=== PATIENT | female | born 1940 | race Caucasian/White ===

== ENCOUNTER 2018-06-24 12:50 | Outpatient (CLI) | payer MEDICARE ==
--- NOTE | 2018-06-24 15:37 | ULT ---
DOPPLER ARTERIAL EVALUATION WITHIN THE RIGHT LOWER EXTREMITY: INDICATION: Decreased dorsalis pedis pulse. FINDINGS: There is triphasic waveform seen within the right common femoral artery and proximal to mid superfici al femoral artery with an antegrade monophasic waveform seen within the right profunda femoral artery proximally. More biphasic-appearing waveform is seen within the distal right superficial femoral ar [place] and right popliteal artery. Biphasic waveforms are seen within the anterior tibial artery and r ight posterior tibial artery. There is biphasic waveform within the right dorsalis pedis. IMPRESSION: 1. Biphasic waveform seen involving the distal right lower extremity from the distal superficial fem oral artery through the level of the dorsalis pedis artery likely indicative of mild to moderate athe rosclerotic disease. No hemodynamically significant stenosis evident. 2. Monophasic antegrade waveform seen at the level of the right profunda femoral artery suspicious f or moderate to severe atherosclerotic disease within the proximal right profunda femoral artery. POS: DONNY
== END 2018-06-24 12:51 | disposition home or self-care (01) ==
LOC: ULT 12:50
PROVIDERS: ATTEND Family Medicine
DX: R09.89 Other specified symptoms and signs involving the circulatory and respiratory systems (principal)
CPT/HCPCS: 80053; 80061; 84443; 93923

== ENCOUNTER 2022-04-16 07:50 | Outpatient (CLI) | payer MEDICARE | END 2022-04-16 07:51 | disposition home or self-care (01) | LOC: CT 07:50 | PROVIDERS: ATTEND Internal Medicine Gastroenterology | DX: R19.7 Diarrhea, unspecified (principal); N81.6 Rectocele; N28.89 Other specified disorders of kidney and ureter; K57.90 Diverticulosis of intestine, part unspecified, without perforation or abscess without bleeding; K44.9 Diaphragmatic hernia without obstruction or gangrene | CPT/HCPCS: 71260; 74177; 82565 ==